=== PATIENT | male | born 1925 | race Caucasian/White ===

== ENCOUNTER → 2017-03-28 | Outpatient (CLI) | payer MEDICARE, BC ==
[~2017-03-28] MED LIST: ACTOS PO; ASPIRIN81 M1 PO; ASPIRIN81 M2; ASPIRIN81 M2 PO; ATENOLOL25 MG PO; COLACE; CRESTOR; DIABETA5 M1 PO; DIAZEPAM PO; FLEXERIL10 MG PO; FORADIL12 MCG INH; GABAPENTIN400 M2 PO; GLYNASE; GLYNASE PO; HCTZ PO; HYTRIN PO; HYTRIN2 MG PO; KCL; KCL PO; LASIX PO; LASIX20 MG PO; LISINOPRIL; LISINOPRIL20 MG PO; MICRONASE5 M1 PO; NEURONTIN PO; OXYGEN; PLAVIX; PLAVIX PO; PRINIVIL10 MG PO; PULMICORT180 MCG/A1 INH; SPIRIVA18 MCG INH; SYMBICORT INH; TENORMIN25 M1 PO; VICODIN 5/500 T1 TAB PO; VITAMIN D400 UNI2
--- NOTE | ~2017-03-28 | US85 ---
[facility] A Service [facility] RADIOLOGY TEXT RESULTS PATIENT: DORIS YUN JR LOCATION: SNIV : [birth year] UNIT #: [id number] AGE: [address]: CLARA BAEZ MD SEX: M ORDER DR: [id number] [address] [address] [id number] MR#: [id number] Acc #: [id number] NAME: DORIS YUN : 1925 SEX: M STUDY DATE/TIME: 03/28/2017 14:00 UNIT: SNIV ROOM: STUDY DESCRIPTION: [facility] or [facility] Attending Physician: Clara Beaz Referring Physician: Clara Baez Ordering Physician: Carmelita Baez M.D. Primary Care Physician: Clara Baez MEDICAL IMAGING REPORT This report is preliminary unless electronic signature is present. EXAM Right lower extremity venous duplex 03/28/2017 HISTORY Right ankle pain and bruising for 5 days. Previous superficial thrombus 2 years ago. FINDINGS TECHNIQUE Venous ultrasound examination of the right lower extremity was performed using grayscale, spectral Doppler and color flow Doppler imaging. FINDINGS The examination is negative. There is no evidence of right lower extremity deep venous thrombus from the groin to the lower calf. Visualized greater saphenous vein is also patent. IMPRESSION Negative examination. No evidence of right lower extremity deep venous thrombosis. Dictated by... Bebeto Brandt M.D. THIS IS AN ELECTRONICALLY VERIFIED REPORT Bebeto Brandt M.D. at 03/31/2017 7:22 AM KRT/to TD: 03/28/2017 21:03 JOB #: [id number] [facility] A Service [facility] RADIOLOGY TEXT RESULTS PATIENT: DORIS YUN JR LOCATION: SNIV : [birth year] UNIT #: [id number] AGE: [address]: CLARA BAEZ MD SEX: M ORDER DR: MEDICAL IMAGING REPORT Page 1 of 1
== END | disposition home or self-care (01) ==
LOC: SNIV 14:00
DX: R60.0 Localized edema (principal)
CPT/HCPCS: 93971